=== PATIENT | female | born 1955 | race Caucasian/White ===

== ENCOUNTER 2020-09-20 13:30 | Emergency (ER) | payer BC ==
[~2020-09-20] VITALS: Ht 177.8 cm; Wt 59.1 kg
[~2020-09-20 13:30] MED LIST: CEPHALEXIN500 M1 PO; FLEXERIL 1010 MG/TAB PO; IBUPROFEN400 MG PO; LAMICTAL150 MG PO; LAMOTRIGINE; LORTAB 5/500 501 TAB PO; MULTIPLE VITAMI1 TAB PO; MVI; NAPROSYN PO; NAPROSYN500 MG PO; NORCO 325 MG-51 TAB PO; SEPTRA DS 8001 TAB PO; XANAX XR1 MG PO
[2020-09-20 14:29] VITALS: TEMP 98.3
[2020-09-20] MEDS ORDERED: DESYREL 50MG50 MG PO (15:53)
[2020-09-20] MEDS ORDERED: MUCINEX 60600 MG/TA1 PO (15:54)
[2020-09-20] MEDS ORDERED: MOTRIN 800800 MG/TAB PO (15:54)
[2020-09-20] MEDS ORDERED: CRUTCHES MC (16:37)
[2020-09-20] MEDS ORDERED: PERCOCET 325 MG1 TA2 PO (16:38)
[2020-09-20] MEDS ORDERED: ZANAFLEX CAPSULE4 MG PO (17:15)
[2020-09-20 17:39] VITALS: BP 101/63; PULSE 72
== END 2020-09-20 17:50 | disposition home or self-care (01) ==
LOC: COL.ER 13:30
DX: M25.552 Pain in left hip (principal); G40.909 Epilepsy, unspecified, not intractable, without status epilepticus; F17.290 Nicotine dependence, other tobacco product, uncomplicated; Z88.5 Allergy status to narcotic agent; Z79.899 Other long term (current) drug therapy; W01.0XXA Fall on same level from slipping, tripping and stumbling without subsequent striking against object, initial encounter; Y92.091 Bathroom in other non-institutional residence as the place of occurrence of the external cause
CPT/HCPCS: J3010